=== PATIENT | male | born 1980 | race Caucasian/White ===

== ENCOUNTER → 2024-01-30 10:19 | Outpatient (REF) | payer BC, SELFPAY | LOC: RAD 10:19 | PROVIDERS: ATTENDING PHYSICIAN Nurse Practitioner Family; FAMILY PHYSICIAN Family Medicine | DX: M54.6 Pain in thoracic spine (principal) | CPT/HCPCS: 72072 ==

== ENCOUNTER 2024-08-23 05:07 | Emergency (ER) | payer BC, SELFPAY ==
[2024-08-23 05:12] VITALS: BP 162/90
[2024-08-23] MEDS: TETRACAINE 0.5% OPHTHALMIC SOLUTION 2 DROP OPHTH (05:19)
[2024-08-23 07:16] VITALS: BMI 44.8
--- NOTE | 2024-08-23 07:39 | ED.GENMED ---
History of Present Illness
General
Chief Complaint: Eye Problems
Source: patient
Exam Limitations: none
Time Seen by Provider: 08/23/24 07:05
Nursing documentation reviewed up to this point in time: agreed with
History of Present Illness
History of Present Illness:
44-year-old male presents to the ER complaining of right eye discomfort. Patient was in a musical show yesterday and feels irritation to his right eye. He was washing his make-up off very aggressively to try to remove it and was concerned that he
possibly could have scratched it. He does not wear contact lenses he does wear glasses and does not have his eyeglasses with him.
He he does complain of light sensitivity and is pain to the right eye even with his eye closed. Denies any other trauma.
Past History
Past History
ED Past Medical History: CAD, HTN, Hypercholesterolemia, NIDDM, [place] (June 2017, Stents X2) and Other ([place],)
ED Past Surgical History: Cardiac (PTCA with stent June 2017)
Social History
Tobacco: Non-smoker
Alcohol: Former (Daily beer one nothing for 2 years)
Personal:
Living: with family
Employment: Employed
Family History
Family History: Other (Noncontributory)
Review of Systems
Review of Systems
Allergies reviewed?: Yes
All Other Systems: ROS reviewed and negative except as documented in HPI and ROS
Constitutional: Reports no symptoms
EENT: Reports other (right eye irritation /pain )
Skin: Reports no symptoms
Neurological: Reports no symptoms; Denies dizzy or headache
Phy Exam
General Physical Exam
General Presentation: no apparent distress
General age: appears stated age
General Skin: warm and dry
General Habitus: normal
General Mental: alert
General Hydration: appears well hydrated
Eye Exam
Eye Exam: PERRL, EOMI and other (Right eye is mildly injected no obvious foreign body or corneal abrasion Lids and everted no foreign body, no pain with light to the opposite eye; pupils equal round and reactive; ph of right eye is 6.5 )
Eye Exam General: PERRL: bilateral and abnormal EOM: bilateral
Pupil Exam: Bilateral: round and reactive
Course
Orders/Labs/Results
Orders:
Orders
08/23/24 05:17
Tetracaine HCl [Tetracaine 0.5% Ophthalmic Solution] 1 drop .ROUTE .STK-MED ONE
08/23/24 05:19
Tetracaine HCl [Tetracaine 0.5% Ophthalmic Solution] See Dose Instructions OPHTH ONCE ONE
Vital Signs
Initial and Last Documented VS:
Initial Vital Signs
Temp Pulse Resp BP Pulse Ox
97.4 F 90 18 162/90 98
08/23/24 05:12 08/23/24 05:12 08/23/24 05:12 08/23/24 05:12 08/23/24 05:12
Last Documented Vital Signs
Temp Pulse Resp BP Pulse Ox
97.4 F 90 18 162/90 98
08/23/24 05:12 08/23/24 05:12 08/23/24 05:12 08/23/24 05:12 08/23/24 05:12
MDM/Problems Addressed
Differential Diagnosis Includes:
Not limited to chemical irritation, corneal abrasion, foreign body
MDM/Problems Addressed:
Symptoms are consistent with irritation possible abrasion though I cannot visualize an abrasion/possible chemical irritation. Patient was removing eye make-up (was wearing a lot of make-up for musical yesterday) and noticied pain /irritation
since.. Patient does not wear contact lenses. Patient was given tetracaine which does relieve his symptoms. Small amt of erythromycin was applied. Patient is followed by the [facility] will have him call the office today for
appointment as soon as possible discussed cool compresses antibiotic ointment and to return if any worsening of symptoms.
*Critical Care Note
Total Time (30-74mins, 75-104mins- exclusive of procedures): Not Applicable
ED Attending Note
-
Portions of this chart may have been created with voice recognition software.� Occasional wrong word or��sound alike� substitutions may have occurred due to the inherent limitations of voice recognition software.
Discharge Plan
Departure
Patient Disposition: Home (Routine Discharge)
Date of Disposition: 08/23/24
Time of Disposition: 07:45
Patient with high blood pressure during this ER visit?: Yes
Covid-19: Not Applicable
Discharge Problem:
Eye irritation
Instructions: BLOOD PRESSURE
Prescriptions:
No Action
Atorvastatin Calcium 40 MG
40 mg PO QPM
lisinopril 20 MG tablet
20 mg PO DAILY
aspirin 81 MG tablet,delayed release (DR/EC)
81 mg PO DAILY
carvedilol 3.125 MG tablet
3.125 mg PO BID
metformin 1,000 MG tablet
1,000 mg PO BID
nitroglycerin 0.4 MG tablet, sublingual
0.4 mg sublingual Q5M MDD 1.2 mg PRN (Reason: chest pain)
sitagliptin phosphate [Januvia] 100 MG tablet
100 mg PO DAILY
Pepcid:
1 tab PO DAILY
Patient Comments:
patient does not know dose
Referrals:
Tomy Espana MD [Family Provider] -
Activity Restrictions/Additional Instructions:
As discussed I do not see any obvious corneal abrasion or foreign body in your eye. You were given erythromycin ointment to apply every 6 hours to your eye as demonstrated here in the ER. Please call your vp ancillary today for an appointment
soon as possible possibly today. You may apply cool compresses to outer eye to help with discomfort. You may take ibuprofen or Tylenol. Continue to use erythromycin ointment for the next several days and return if any worsening of symptoms.
Interventions
Interventions:
*Risk Screen - Suicide Last Done: 08/23/24 05:12
*General Assessment Last Done: 08/23/24 07:16
*Neglect/Abuse Screening Last Done: 08/23/24 05:12
ED- Fall Risk Assessment Last Done: 08/23/24 07:16
*ED COVID-19 Vaccine History Last Done: 08/23/24 07:16
Discharge Date and Time
Print Language: MACEDONIAN
[2024-08-23] MEDS: TYLENOL 1000 MG PO (07:47)
[2024-08-23] MEDS: ERYTHROMYCIN 0.5% OPHTHALMIC OINTMENT 1 APPLIC OPHTH (07:48)
== END 2024-08-23 08:04 | disposition home or self-care (01) ==
LOC: EMR 05:07
PROVIDERS: EMERGENCY PHYSICIAN Emergency Medicine; FAMILY PHYSICIAN Family Medicine
DX: H57.89 Other specified disorders of eye and adnexa (principal); I10 Essential (primary) hypertension
CPT/HCPCS: 99283